=== PATIENT | male | born 1990 | race Caucasian/White ===

== ENCOUNTER 2022-08-08 15:09 | Emergency (ER) | payer OTHER ==
[2022-08-08 16:13] LABS: Absolute Lymphocytes (CBC) 1.6 K/uL (0.7-4.9); Hematocrit 47.2 % (39.6-49.0); Lymphocytes % 13.4 % (15.3-44.8); MPV 8.7 fL (7.6-11.3); RBC Red Blood Cell Count 5.13 M/uL (4.33-5.43)
[2022-08-08 16:24] LABS: Barbiturates NEGATIVE (NEGATIVE); Benzodiazepines NEGATIVE (NEGATIVE); Cocaine NEGATIVE (NEGATIVE); METHAMPHETAM NEGATIVE (NEGATIVE); Methadone NEGATIVE (NEGATIVE); Opiates NEGATIVE (NEGATIVE); Phencyclidine NEGATIVE (NEGATIVE); THC Cannibis NEGATIVE (NEGATIVE)
[2022-08-08 16:37] LABS: Protime INR 1.03
[2022-08-08 16:38] LABS: Magnesium 1.8 mg/dL (1.6-2.4); Potassium 3.5 mEq/L (3.5-5.1); Troponin High Sensitivity 7.1 pg/mL (<58.9)
--- NOTE | 2022-08-08 17:02 | RAD REPORT ---
EXAM DESCRIPTION: [facility] Single View08/08/2022 4:49 pm CLINICAL HISTORY: Chest pain COMPARISON: none FINDINGS: The lungs appear clear of acute infiltrate. The heart is normal size IMPRESSION: No acute abnormalities displayed
[2022-08-08] MEDS ORDERED: KETOROLAC 30 MG/ML INJ ONE (17:07)
[2022-08-08] MEDS ORDERED: NA CHLORIDE 0.9% 1,000 ML ONE (17:07)
--- NOTE | 2022-08-08 20:19 | EDPHYS ---
Physician Documentation [facility] Name: Clement Vasquez Age: 32 yrs Sex: Male : 1990 Arrival Date: 08/08/2022 Time: 15:09 Bed 15 Private MD: ED Physician Prakash Villatoro HPI: 08/08 16:00 This 32 yrs old Male presents to ER via Ambulatory with complaints of Palpitations. cp 16:00 The patient presents with a history of heart racing. Onset: The symptoms/episode cp began/occurred 1 hour(s) ago. Duration: The patient or guardian reports a single episode, that is still ongoing. Associated signs and symptoms: Pertinent positives: chest pain, Pertinent negatives: cough, fever, SOB, syncope, vomiting. Patient reports taking pre-work out supplement today and then started having palpitations and left side chest pain. Historical: - Allergies: 15:45 No Known Allergies; iw - Home Meds: 15:45 None [Active]; iw - PMHx: 15:45 None; iw - PSHx: 15:45 None; iw - Social history:: Smoking status: Patient reports the use of cigarette tobacco products, denies chronic smoking, but will smoke occasionally. ROS: 16:05 Constitutional: Negative for body aches, chills, fever, poor PO intake. cp 16:05 Eyes: Negative for injury, pain, redness, and discharge. cp 16:05 ENT: Negative for drainage from ear(s), ear pain, sore throat, difficulty swallowing, difficulty handling secretions. 16:05 Cardiovascular: Positive for chest pain, palpitations, Negative for edema. 16:05 Respiratory: Negative for cough, shortness of breath, wheezing. 16:05 Abdomen/GI: Negative for abdominal pain, vomiting, diarrhea, constipation. 16:05 Back: Negative for pain at rest, pain with movement. 16:05 Neuro: Negative for altered mental status, dizziness, headache, numbness, syncope, weakness. 16:05 All other systems are negative. Exam: 15:58 ECG was reviewed by the Attending Physician. cp 16:10 Constitutional: The patient appears in no acute distress, alert, awake, cp non-diaphoretic, non-toxic, well developed, well nourished. 16:10 Head/Face: Normocephalic, atraumatic. cp 16:10 Eyes: Periorbital structures: appear normal, Conjunctiva: normal, no exudate, no injection, Sclera: no appreciated abnormality, Lids and lashes: appear normal, bilaterally. 16:10 ENT: External ear(s): are unremarkable, Nose: is normal, Mouth: Lips: moist, Oral mucosa: pink and intact, moist, Posterior pharynx: is normal, airway is patent, no erythema, no exudate. 16:10 Neck: ROM/movement: is normal, is supple, without pain, no range of motions limitations. 16:10 Chest/axilla: Inspection: normal, Palpation: is normal, no crepitus, no tenderness. 16:10 Cardiovascular: Rate: normal, Rhythm: regular, Edema: is not appreciated, JVD: is not appreciated. 16:10 Respiratory: the patient does not display signs of respiratory distress, Respirations: normal, no use of accessory muscles, no retractions, labored breathing, is not present, Breath sounds: are clear throughout, no decreased breath sounds, no stridor, no wheezing. 16:10 Abdomen/GI: Inspection: abdomen appears normal, Palpation: abdomen is soft and non-tender, in all quadrants. 16:10 Back: pain, is absent, ROM is normal. 16:10 Neuro: Orientation: to person, place \T\ time. Mentation: is normal, Motor: moves all fours, strength is normal, Sensation: is normal. Vital Signs: 15:44 BP 150 / 103; Pulse 77; Resp 16; Temp 97.7; Pulse Ox 100% on R/A; Weight 94.35 kg; iw Height 5 ft. 8 in. ; Pain 6/10; 17:06 BP 146 / 78; Pulse 80; Resp 18; Pulse Ox 99% on R/A; Pain 0/10; ld1 18:32 BP 154 / 79; Pulse 81; Resp 18; Pulse Ox 97% on R/A; Pain 0/10; ld1 20:41 BP 148 / 72; Pulse 79; Resp 17; Temp 98.5; Pulse Ox 100% on R/A; aa9 15:44 Body Mass Index 31.63 (94.35 kg, 172.72 cm) iw 15:44 Pain Scale: Adult iw 17:06 Pain Scale: Adult ld1 18:32 Pain Scale: Adult ld1 MDM: 15:25 Patient medically screened. bs3 16:00 Differential diagnosis: arrythmia, stress disorder, anxiety, electrolyte abnormality, cp illegal drug use. 20:19 Data reviewed: vital signs, nurses notes, lab test result(s), EKG, radiologic studies, cp plain films. 20:19 I considered the following discharge prescriptions or medication management in the emergency department Medications were administered in the Emergency Department. See MAR. Counseling: I had a detailed discussion with the patient and/or guardian regarding: the historical points, exam findings, and any diagnostic results supporting the discharge/admit diagnosis, the presence of at least one elevated blood pressure reading (>120/80) during this emergency department visit, lab results, radiology results, the need for outpatient follow up, a family practitioner, to return to the emergency department if symptoms worsen or persist or if there are any questions or concerns that arise at home. Response to treatment: the patient's symptoms have mildly improved after treatment. Special discussion: Based on the patient's history, exam, and Dx evaluation, there is no indication for emergent intervention or inpatient Tx. It is understood by the patient/guardian that if the Sx's persist or worsen they need to return immediately for re-evaluation. 08/08 15:53 Order name: Basic Metabolic Panel; Complete Time: 16:41 08/08 16:41 Interpretation: Normal except: NA 135; GLUC 111. 08/08 15:53 Order name: CBC with Diff; Complete Time: 16:41 08/08 16:42 Interpretation: Normal except: WBC 11.70; URIEL% 78.7; LYM% 13.4; NEUT A 9.2. 08/08 15:53 Order name: D-Dimer; Complete Time: 16:41 cp 08/08 16:42 Interpretation: Reviewed. 08/08 15:53 Order name: Magnesium; Complete Time: 16:41 cp 08/08 15:53 Order name: PT-INR; Complete Time: 16:41 cp 08/08 15:53 Order name: Troponin HS; Complete Time: 16:41 cp 08/08 16:42 Interpretation: Reviewed. 08/08 15:53 Order name: UDS; Complete Time: 16:41 08/08 16:42 Interpretation: Reviewed. 08/08 19:01 Order name: Troponin High Sensitivity; Complete Time: 20:18 ld1 08/08 15:53 Order name: XRAY Chest (1 view); Complete Time: 17:17 cp 08/08 15:53 Order name: EKG; Complete Time: 15:54 cp 08/08 15:53 Order name: Cardiac monitoring; Complete Time: 16:58 cp 08/08 15:53 Order name: EKG - Nurse/Tech; Complete Time: 15:54 cp 08/08 15:53 Order name: IV Saline Lock; Complete Time: 16:18 cp 08/08 15:53 Order name: Labs collected and sent; Complete Time: 16:18 cp 08/08 15:53 Order name: O2 Per Protocol; Complete Time: 16:18 cp 08/08 15:53 Order name: O2 Sat Monitoring; Complete Time: 16:18 cp EC:58 Rate is 74 beats/min. Rhythm is regular. OH interval is normal. QRS interval is cp prolonged at 108 msec. QT interval is normal. T waves are Inverted in lead aVR. Interpreted by me. Reviewed by me. Administered Medications: 17:05 Drug: NS 0.9% IV 1000 ml Route: IV; Rate: 500 ml/hr; Site: left antecubital; ld1 20:41 Follow up: Response: No adverse reaction; IV Status: Completed infusion; IV Intake: aa9 1000ml 17:05 Drug: Ketorolac IVP 15 mg Route: IVP; Site: left antecubital; ld1 20:41 Follow up: Response: No adverse reaction aa9 Disposition Summary: 08/08/22 20:19 Discharge Ordered Location: Home cp Problem: new cp Symptoms: have improved cp Condition: Stable cp Diagnosis - Palpitations cp - Elevated blood-pressure reading, without diagnosis of hypertension cp Followup: cp - With: Black Saleem MD - When: 2 - 3 days - Reason: Recheck today's complaints Discharge Instructions: - Discharge Summary Sheet cp - Nonspecific Chest Pain, Adult cp - Palpitations cp - How to Take Your Blood Pressure, [id number] cp - Aspirin and Your Heart cp - DASH Eating Plan cp - Ambulatory Cardiac Monitoring cp Forms: - Medication Reconciliation Form cp - Thank You Letter cp - Antibiotic Education cp - Prescription Opioid Use cp Signatures: Dispatcher [employer] Sofi Moreira RN RN iw Page, EnriqueMARIA ISABEL adair cp, Lauren, RN RN ld1 Prakash Villatoro MD MD bs3 Natividad Robles RN aa9 Corrections: (The following items were deleted from the chart) 15:45 15:45 Allergies: Aspirin; iw iw
--- NOTE | 2022-08-08 20:19 | ER ---
Nurse's Notes [facility] Name: Clement Vasquez Age: 32 yrs Sex: Male : 1990 Arrival Date: 08/08/2022 Time: 15:09 Bed 15 Private MD: Diagnosis: Palpitations;Elevated blood-pressure reading, without diagnosis of hypertension Presentation: 08/08 15:44 Chief complaint: Patient states: left sided chest pain X 1 hour , feels sharp like iw pressure, is getting better but still there. Coronavirus screen: At this time, the client does not indicate any symptoms associated with coronavirus-19. Ebola Screen: Patient negative for fever greater than or equal to 101.5 degrees Fahrenheit, and additional compatible Ebola Virus Disease symptoms Patient denies exposure to infectious person. Patient denies travel to an Ebola-affected area in the 21 days before illness onset. No symptoms or risks identified at this time. Initial Sepsis Screen: Does the patient meet any 2 criteria? No. Patient's initial sepsis screen is negative. Does the patient have a suspected source of infection? No. Patient's initial sepsis screen is negative. Risk Assessment: Do you want to hurt yourself or someone else? Patient reports no desire to harm self or others. Onset of symptoms was August 08, 2022. 15:44 Method Of Arrival: Ambulatory iw 15:44 Acuity: GRACE 3 iw Historical: - Allergies: 15:45 No Known Allergies; iw - Home Meds: 15:45 None [Active]; iw - PMHx: 15:45 None; iw - PSHx: 15:45 None; iw - Social history:: Smoking status: Patient reports the use of cigarette tobacco products, denies chronic smoking, but will smoke occasionally. Screenin:07 [facility] ED Fall Risk Assessment (Adult) History of falling in the last 3 months, ld1 including since admission No falls in past 3 months (0 pts). Abuse screen: Denies threats or abuse. Denies injuries from another. Nutritional screening: No deficits noted. Tuberculosis screening: No symptoms or risk factors identified. Assessment: 17:06 Reassessment: No changes from previously documented assessment. Patient and/or family ld1 updated on plan of care and expected duration. Pain level reassessed. Patient is alert, oriented x 3, equal unlabored respirations, skin warm/dry/pink. See triage assessment. 18:32 Reassessment: Patient appears in no apparent distress at this time. No changes from ld1 previously documented assessment. Patient and/or family updated on plan of care and expected duration. Pain level reassessed. Patient is alert, oriented x 3, equal unlabored respirations, skin warm/dry/pink. 19:29 General: Appears in no apparent distress. comfortable, Behavior is calm, cooperative. aa9 Neuro: Level of Consciousness is awake, alert, obeys commands, Oriented to person, place, time, situation. Respiratory: Airway is patent Respiratory effort is even, unlabored. 20:37 Reassessment: Patient appears in no apparent distress at this time. Patient and/or aa9 family updated on plan of care and expected duration. Pain level reassessed. Patient is alert, oriented x 3, equal unlabored respirations, skin warm/dry/pink. Patient states symptoms have improved. pt states, "Can I get some aspirin, I have like a slight pain on my left arm now, its not a strong but I would like some aspirin before I go.". 20:43 General: Ansley NICOLAS verbal order for Aspirin 324 mg PO, administered. aa9 Vital Signs: 15:44 BP 150 / 103; Pulse 77; Resp 16; Temp 97.7; Pulse Ox 100% on R/A; Weight 94.35 kg; iw Height 5 ft. 8 in. ; Pain 6/10; 17:06 BP 146 / 78; Pulse 80; Resp 18; Pulse Ox 99% on R/A; Pain 0/10; ld1 18:32 BP 154 / 79; Pulse 81; Resp 18; Pulse Ox 97% on R/A; Pain 0/10; ld1 20:41 BP 148 / 72; Pulse 79; Resp 17; Temp 98.5; Pulse Ox 100% on R/A; aa9 15:44 Body Mass Index 31.63 (94.35 kg, 172.72 cm) iw 15:44 Pain Scale: Adult iw 17:06 Pain Scale: Adult ld1 18:32 Pain Scale: Adult ld1 ED Course: 15:13 Patient arrived in ED. hb 15:28 Enrique Panchal PA is PHCP. cp 15:28 Prakash Villatoro MD is Attending Physician. cp 15:45 Triage completed. iw 15:45 Arm band placed on. iw 16:50 XRAY Chest (1 view) In Process Unspecified. EDMS 16:58 Pretty Gamboa, RN is Primary Nurse. ld1 17:07 Patient has correct armband on for positive identification. Placed in gown. Bed in low ld1 position. Call light in reach. Side rails up X2. nuclear monitoring technician on. Pulse ox on. NIBP on. Door closed. Noise minimized. Warm blanket given. 17:07 No provider procedures requiring assistance completed. Inserted saline lock: 22 gauge ld1 in right antecubital area, using aseptic technique. Blood collected. 20:18 Black Saleem MD is Referral Physician. cp 20:37 IV discontinued, intact, bleeding controlled, No redness/swelling at site. Pressure aa9 dressing applied. Administered Medications: 17:05 Drug: NS 0.9% IV 1000 ml Route: IV; Rate: 500 ml/hr; Site: left antecubital; ld1 20:41 Follow up: Response: No adverse reaction; IV Status: Completed infusion; IV Intake: aa9 1000ml 17:05 Drug: Ketorolac IVP 15 mg Route: IVP; Site: left antecubital; ld1 20:41 Follow up: Response: No adverse reaction aa9 Medication: 17:07 VIS not applicable for this client. ld1 Intake: 20:41 IV: 1000ml; Total: 1000ml. aa9 Outcome: 20:19 Discharge ordered by MD. cp 20:37 Discharged to home ambulatory. aa9 20:37 Condition: stable 20:37 Discharge instructions given to patient, Instructed on discharge instructions, follow up and referral plans. Demonstrated understanding of instructions, follow-up care. 20:42 Patient left the ED. aa9 Signatures: Dispatcher [employer] EDSD Sofi Lagunas RN RN iw Enrique Panchal PA PA cp Magdalena Estrada RN RN Pretty Gamboa RN RN ld1 Natividad Robles RN RN aa9 Corrections: (The following items were deleted from the chart) 15:45 15:45 Allergies: Aspirin; iw iw
[2022-08-08] MEDS ORDERED: ASPIRIN EC 81 MG TAB PO ONE (20:47)
--- NOTE | 2022-08-09 14:37 | EKG ---
Test Date: 2022-08-08 Test Time: 15:52:12 Machine Tester: MONTY MEASUREMENT RESULTS: Intervals: Rate: 74 AR: 140 QRSD: 108 QT: 350 QTc: 388 [place]: P: 32 AR: 140 QRS: 2 T: 44 INTERPRETIVE STATEMENTS: Normal sinus rhythm Normal ECG No previous ECG available for comparison Electronically Signed On 08-09-22 14:36:24 CDT by Black Saleem
== END 2022-08-08 20:42 | disposition home or self-care (01) ==
LOC: ER 15:09
DX: R00.2 Palpitations (principal); R03.0 Elevated blood-pressure reading, without diagnosis of hypertension; F17.210 Nicotine dependence, cigarettes, uncomplicated
CPT/HCPCS: 96361; 93005; 85025; 80048; 36415; 83735; 85610; 85379; 84484 ×2; 80307; 71045; 96374; 99285; J7030